=== PATIENT | female | born 1975 | race Native Hawaiian/Other Pacific Islander ===

== ENCOUNTER 2017-05-08 12:47 | Outpatient (CLI) | payer OTHER | END 2017-05-08 14:15 | disposition home or self-care (01) | LOC: MAMMO 12:47 | DX: N64.59 Other signs and symptoms in breast (principal) ==

== ENCOUNTER 2017-05-27 08:33 | Outpatient (CLI) | payer OTHER | END 2017-05-27 19:30 | disposition home or self-care (01) | LOC: US 08:33 | DX: N64.4 Mastodynia (principal); Z87.828 Personal history of other (healed) physical injury and trauma; N60.01 Solitary cyst of right breast ==

== ENCOUNTER 2018-10-01 15:19 | Outpatient (CLI) | payer BC | END 2018-10-01 19:50 | disposition home or self-care (01) | LOC: MAMMO 15:19 | DX: Z12.31 Encounter for screening mammogram for malignant neoplasm of breast (principal) ==